=== PATIENT | female | born 1980 | race Caucasian/White ===

== ENCOUNTER → 2016-07-11 | Outpatient (CLI) | payer BC ==
[~2016-07-11] MED LIST: ACHYD1T PO; BENZ56AE TP; BUTA1CAP3; CITA20TA7; CTLP20T PO; DCS100C PO; FAMO40TA6; HYDR-3584; IBP600T1 PO; IBP800T PO; LEVO88TA54 PO; MULT-305 PO; OXYC-12 PO; OXYC-272 PO; PREN1TAB14 PO; SUMA100T3; TOPI100T11
[2016-07-11 17:07] LABS: BASOPHILS # (AUTO) 0.1 10^3/uL (0.0-0.1); BASOPHILS % (AUTO) 1 % (0-10); EOSINOPHILS # (AUTO) 0.2 10^3/uL (0.0-0.3); EOSINOPHILS % (AUTO) 3 % (0-10); LYMPHOCYTES # (AUTO) 1.5 X 10^3 (1.0-4.0); LYMPHOCYTES % (AUTO) 19 % (12-44); MEAN CORPUSCULAR HEMOGLOBIN 31 PG (25-34); MEAN CORPUSCULAR HGB CONC 33 G/DL (32-36); MEAN CORPUSCULAR VOLUME 93 FL (80-99); MEAN PLATELET VOLUME 10.8 FL (7.4-10.4); MONOCYTES # (AUTO) 0.4 X 10^3 (0.0-1.0); MONOCYTES % (AUTO) 5 % (0-12); NEUTROPHILS # (AUTO) 5.9 X 10^3 (1.8-7.8); NEUTROPHILS % (AUTO) 73 % (42-75); PLATELET COUNT 195 10^3/uL (130-400); RED BLOOD COUNT 4.57 10^6/uL (4.35-5.85); RED CELL DISTRIBUTION WIDTH 12.4 % (10.0-14.5); WHITE BLOOD COUNT 8.1 10^3/uL (4.3-11.0)
[2016-07-11 17:25] LABS: ALANINE AMINOTRANSFERASE 12 U/L (0-55); ALBUMIN 4.6 G/DL (3.2-4.5); AMYLASE 53 U/L (25-125); ANION GAP 5 MMOL/L (5-14); ASPARTATE AMINO TRANSFERASE 11 U/L (5-34); BILIRUBIN,TOTAL 0.2 MG/DL (0.1-1.0); BLOOD UREA NITROGEN 19 MG/DL (7-18); BUN/CREATININE RATIO 23; CALCIUM 9.6 MG/DL (8.5-10.1); CARBON DIOXIDE 28 MMOL/L (21-32); CHLORIDE 108 MMOL/L (98-107); CREATININE SERUM 0.82 MG/DL (0.60-1.30); GFR ESTIMATED > 60; GLUCOSE 96 MG/DL (70-105); LIPASE 24 U/L (8-78); POTASSIUM 4.1 MMOL/L (3.6-5.0); SODIUM 141 MMOL/L (135-145); TOTAL PROTEIN 7.4 G/DL (6.4-8.2); hs C REACTIVE PROTEIN 0.12 MG/DL (0.00-0.50)
== END ==
LOC: LAB 16:51
PROVIDERS: ATTEND Nurse Practitioner Family
DX: R10.11 Right upper quadrant pain (principal); R11.0 Nausea
CPT/HCPCS: 36415; 80053; 82150; 83690; 85025; 86141

== ENCOUNTER → 2016-07-22 | Outpatient (CLI) | payer BC ==
--- NOTE | 2016-07-22 11:16 | Diagnostic Imaging Report ---
PROCEDURE: US abdomen complete. TECHNIQUE: Multiple real-time grayscale images were obtained over the abdomen in various projections. INDICATION: Right upper quadrant pain. COMPARISON: 07/26/2015. FINDINGS: The visualized portions of the pancreas appear unremarkable. The abdominal aorta is normal in caliber. The visualized portions of the IVC appear unremarkable. The liver is fairly homogeneous with no focal lesion seen. It is normal in size. Hepatopetal flow in the portal vein is demonstrated. The CBD is 3 mm in caliber. The gallbladder demonstrates no stones or wall thickening. No pericholecystic fluid. The sonographic Gray sign was reportedly negative. The spleen is 12.3 x 4.4 x 4 cm in size, at the upper limits of normal. The left kidney is 12 and the right kidney is also 12 cm in length. There is no hydronephrosis or focal lesion. No fluid collection or ascites is seen. IMPRESSION: The splenic size is at the upper limits of normal. No gallstones or evidence of cholecystitis. Dictated by: Dictated on workstation # [id number]
== END ==
LOC: RAD 07:48
PROVIDERS: ATTEND Nurse Practitioner Family
DX: R10.11 Right upper quadrant pain (principal); R11.0 Nausea
CPT/HCPCS: 76700

== ENCOUNTER → 2016-07-30 | Outpatient (CLI) | payer BC ==
[~2016-07-30] MED LIST changes: +CATHETER FLUSH 10 ML SYR IV PRN
--- NOTE | 2016-07-30 10:46 | Diagnostic Imaging Report ---
INDICATION: Right upper quadrant pain. EXAMINATION: Hepatobiliary scan. TECHNIQUE: 5.26 mCi of technetium 99m Choletec was given for the scan. One can of Ensure Plus was administered orally 1 hour into the study. FINDINGS: There is homogeneous uptake of isotope throughout the liver. The cystic duct and common duct are both patent. The gallbladder ejection fraction is calculated at 65%. IMPRESSION: Normal hepatobiliary scan and gallbladder ejection. Dictated by: Dictated on workstation # [id number]
== END ==
LOC: CARD 07:56
PROVIDERS: ATTEND Nurse Practitioner Family
DX: R10.11 Right upper quadrant pain (principal); R11.0 Nausea
CPT/HCPCS: 78227

== ENCOUNTER 2016-12-10 05:40 | Outpatient (CLI) | payer BC ==
[~2016-12-10] VITALS: Ht 162.6 cm; Wt 68.5 kg
[~2016-12-10 05:40] MED LIST changes: -CATHETER FLUSH 10 ML SYR IV PRN; -TOPI100T11; +TOPI100T11 PO
[2016-12-10] MEDS ORDERED: CITA20TA12 PO (12:35)
[2016-12-10] MEDS ORDERED: CETI10TA20 PO (12:35)
[2016-12-10] MEDS ORDERED: DIPH25CA79 PO (12:35)
== END 2016-12-10 12:42 ==
LOC: PREOP 05:40
PROVIDERS: ATTEND Obstetrics & Gynecology
DX: Z01.818 Encounter for other preprocedural examination (principal); N83.9 Noninflammatory disorder of ovary, fallopian tube and broad ligament, unspecified

== ENCOUNTER 2016-12-12 10:35 | Day surgery (SDC) | payer BC ==
[2016-12-12] VITALS (7 sets, daily range): BP systolic 101–127; BP diastolic 65–81
[~2016-12-12] VITALS: Ht 162.6 cm; Wt 68.5 kg
[~2016-12-12 10:35] MED LIST changes: +CETI10TA20 PO; +CITA20TA12 PO; +DIPH25CA79 PO
[2016-12-12] MEDS ORDERED: ceFAZolin 1 GM/NS 50 ML IVPB IV ONE ×2 (11:00)
[2016-12-12] MEDS ORDERED: CATHETER FLUSH 10 ML SYR IV PRN (11:00)
[2016-12-12 11:02] LABS: BASOPHILS # (AUTO) 0.1 10^3/uL (0.0-0.1); BASOPHILS % (AUTO) 1 % (0-10); EOSINOPHILS # (AUTO) 0.2 10^3/uL (0.0-0.3); EOSINOPHILS % (AUTO) 4 % (0-10); LYMPHOCYTES # (AUTO) 1.4 X 10^3 (1.0-4.0); LYMPHOCYTES % (AUTO) 32 % (12-44); MEAN CORPUSCULAR HEMOGLOBIN 30 PG (25-34); MEAN CORPUSCULAR HGB CONC 32 G/DL (32-36); MEAN CORPUSCULAR VOLUME 92 FL (80-99); MEAN PLATELET VOLUME 11.1 FL (7.4-10.4); MONOCYTES # (AUTO) 0.3 X 10^3 (0.0-1.0); MONOCYTES % (AUTO) 7 % (0-12); NEUTROPHILS # (AUTO) 2.4 X 10^3 (1.8-7.8); NEUTROPHILS % (AUTO) 56 % (42-75); PLATELET COUNT 168 10^3/uL (130-400); RED BLOOD COUNT 4.41 10^6/uL (4.35-5.85); RED CELL DISTRIBUTION WIDTH 12.5 % (10.0-14.5); WHITE BLOOD COUNT 4.3 10^3/uL (4.3-11.0)
[2016-12-12] MEDS ORDERED: BUP/EPI 0.5% 1:200,000 (MARCAINE) 10ML VIAL IJ ONE (11:21)
[2016-12-12] MEDS ORDERED: proPOfol 200 MG/20 ML (DIPRIVAN) VIAL IV ONE (11:34)
[2016-12-12] MEDS ORDERED: fentaNYL INJECTION 100 MCG/2 ML AMP ONE ×2 (11:34→13:28)
[2016-12-12] MEDS ORDERED: MIDAZOLAM 2 MG/2 ML (VERSED) VIAL ONE (11:34)
[2016-12-12] MEDS ORDERED: LIDOCAINE PF 2% 5 ML (XYLOCAINE) VIAL ONE (11:34)
[2016-12-12] MEDS ORDERED: ROCURONIUM 50 MG/5 ML (ZEMURON) VIAL IV ONE (11:34)
[2016-12-12] MEDS ORDERED: ONDANSETRON 4 MG/2 ML (SDV) Z0FRAN ONE ×2 (11:35→17:55)
[2016-12-12] MEDS ORDERED: SEVOFLURANE (ULTANE) 15 ML INHAL SOLN ONE ×5 (11:37→13:48)
--- NOTE | 2016-12-12 12:39 | Progress Note-Pre Operative ---
Pre-Operative Progress Note H&P Reviewed The H&P was reviewed, patient examined and no changes noted. Date Seen by Provider: Dec 12, 2016 Time Seen by Provider: 12:39 Date H&P Reviewed: Dec 12, 2016 Time H&P Reviewed: 12:39 Pre-Operative Diagnosis: right pelvic pain and left adnexal mass history of endometriosis SRINIVAS GUEVARA MD Dec 12, 2016 12:39 pm
[2016-12-12] MEDS ORDERED: D5 LR IV SOLUTION 1,000 ML IV SCH (12:40)
--- NOTE | 2016-12-12 12:40 | Progress Note-Post Operative ---
Post-Operative Progess Note Surgeon (s)/Slot Machine Mechanic (s) Surgeon SRINIVAS GUEVARA MD Slot Machine Mechanic: Corie Nuñez Pre-Operative Diagnosis chronicic pain and left adnexal mass history of endometriosis Post-Operative Diagnosis same with overt endometriosis implants on the appendix, pelvic adhesions, right hydrosalpinx, aand with pathology pending Procedure & Operative Findings Date of Procedure 12/12/16 Procedure Performed/Findings laparoscopic bilateral salpingectomy with laparoscopic left oophorectomy endoscopic destruction of endometriosis and laparoscopic adhesiolysis and laparoscopic appendectomy Anesthesia Type GETA Estimated Blood Loss Estimated blood loss (mL): minimal Specimens/Packing Specimens Removed both fallopian tubes and the left ovary, appendix Packing: none SRINIVAS GUEVARA MD Dec 12, 2016 12:40
[2016-12-12] MEDS ORDERED: OXYC-202 PO (12:42)
[2016-12-12] MEDS ORDERED: fentaNYL INJECTION 100 MCG/2 ML AMP IVP PRN (12:45)
[2016-12-12] MEDS ORDERED: ONDANSETRON 4 MG/2 ML (SDV) Z0FRAN IVP PRN ×2 (12:45→13:15)
[2016-12-12] MEDS ORDERED: KETOROLAC 30 MG/ML VIAL IVP ONE (12:45)
--- NOTE | 2016-12-12 12:45 | Discharge Instructions ---
Discharge Instructions Discharge Medications New, Converted or Re-Newed RX: RX on Chart Patient Instructions Patient Instructions: as directed Return to The Hospital For: aas direct Activity & Diet Discharge Diet: No Restrictions Activity as Tolerated: No Orders-Post D/C & Referrals Follow Up Appt: return to clinic with me in 1 week for suture removal Activity: Rest for 24 hours, than as tolerated. Wound Care: May remove Band-Aid tomorrow. Replace as desired. Keep incisions clean and dry. Wash daily with soap and water. Diet: As tolerated-Clear Liquids only if nauseated. May shower or tub bathe as desired. No driving for 24 hours, no alcoholic beverages for 24 hours, and nothing per vagina (no tampons, douching, or intercourse) for 1/2 weeks. Patient to return to the clinic as soon as possible for: Temperature greater than 101F, Severe Pain, Foul discharge from incision or vagina, Excessive Bleeding (more than a period). SRINIVAS GUEVARA MD Dec 12, 2016 12:45 pm
[2016-12-12] MEDS ORDERED: LACTATED RINGERS 1,000 ML IV PRN (13:09)
[2016-12-12] MEDS ORDERED: morphine INJ 10 MG/ML 1ML (SYR OR VIAL) IVP PRN (13:15)
[2016-12-12] MEDS ORDERED: MEPERIDINE (DEMEROL) INJ 50 MG/ML IVP PRN (13:15)
[2016-12-12] MEDS ORDERED: GLYCOPYRROLATE 0.2 MG/ML (ROBINUL) 2 ML VIAL ONE (13:32)
[2016-12-12] MEDS ORDERED: NEOSTIGMINE (BLOXIVERZ ) 1 MG/1ML 10 ML VIAL ONE (13:32)
[2016-12-12] MEDS ORDERED: morphine INJ 10 MG/ML 1ML (SYR OR VIAL) ONE (13:49)
[2016-12-12] MEDS ORDERED: KETOROLAC 30 MG/ML VIAL ONE ×2 (13:49→21:44)
[2016-12-12] MEDS ORDERED: MEPERIDINE (DEMEROL) INJ 50 MG/ML ONE (14:04)
[2016-12-12] MEDS ORDERED: oxyCODONE/APAP 10/325MG (PERCOCET 10) TABLET PO ONE ×2 (15:10→16:28)
[2016-12-12] MEDS: oxyCODONE/APAP 10/325MG (PERCOCET 10) TABLET PO PRN ×2 (15:20→16:40)
[2016-12-12] MEDS ORDERED: D5 LR IV SOLUTION 1,000 ML IV ONE (18:06)
[2016-12-12] MEDS ORDERED: KETOROLAC 30 MG/ML VIAL IVP PRN (22:00)
--- NOTE | 2016-12-13 02:19 | OPERATIVE REPORT ---
DATE OF SERVICE: 12/12/2016 PREOPERATIVE DIAGNOSES: Chronic pelvic pain, left adnexal mass and history of endometriosis. POSTOPERATIVE DIAGNOSES: Chronic pelvic pain, left adnexal mass and history of endometriosis with endometriosis in the pelvis, pelvic adhesions and overt endometriosis implant involving the appendix. OPERATIVE PROCEDURE: Laparoscopic left salpingo-oophorectomy, laparoscopic adhesiolysis, laparoscopic right salpingectomy, laparoscopic destruction of endometriosis and laparoscopic appendectomy. OPERATIVE DESCRIPTION: With the patient in the supine position under satisfactory general anesthesia, she was repositioned in the dorsal lithotomy position in the [facility] and prepped and draped in the usual fashion for abdominal and vaginal surgery. The urinary bladder was emptied with a straight catheter. The vagina was distended by placing a damp Kerlix in the vaginal vault. The patient brought in low dorsolithotomy position. A 5 mm incision was made in the patient's left upper quadrant, a 12 mm incision in the base of the umbilicus and another 5 mm incision just superior to the symphysis pubis. All three incision sites were on the same location as her previous laparoscopy incisions. All sites were infiltrated with 0.5% Marcaine with epinephrine prior to incision. A Veress needle was placed through the left upper quadrant incision. Correct placement was confirmed with a water drop test. The abdomen was insufflated with 2.4 liters of carbon dioxide, then the Veress needle was removed and a 5 mm Optiview laparoscopic port was placed. The patient was placed in Trendelenburg allowing the bowel was filled partially above the pelvis and then a 12 mm port was placed through the infraumbilical incision and a 5 mm port superior to the symphysis pubis. The pelvis was examined. There were adhesions of the sigmoid to the left pelvic brim obscuring access to the left tube and ovary. There were adhesions of sigmoid epiploica to the vaginal cuff. There were endometriosis implants on the vaginal cuff. There were endometriosis implants involved with the adhesions of the bowel to the left pelvic brim. The right fallopian tube appeared to be somewhat distended consistent with an early hydrosalpinx. Both fallopian tubes appeared to have evidence of endometriosis thereon. The appendix was identified. It had a classic endometriosis appearing lesion on its midportion. The bowel adhesions were freed very carefully and meticulously allowing the bowel to eventually been spilled completely above the pelvis allowing access to the left tube and ovary. An Endo-JOLYNN was placed across the IP ligament and fired severing the ovary and tube from their attachments. The adnexa were placed in the cul-de-sac for removal later. There was some bleeding along the staple line just slight oozing, but this was touched with cautery to effect hemostasis. The endometriosis implants in the vaginal cuff and in the cul-de-sac and ovarian fossa were now touched with electrocautery to destroy them. The right fallopian tube was grasped and elevated. There were couple small simple appearing cysts on the right ovary that were benign in nature. The mesosalpinx was carefully divided the fallopian tube from the adnexa. That specimen was brought out through the umbilical port and sent to pathology labeled as right fallopian tube. The pelvis was irrigated and examined for hemostasis which was complete at this point. There was some fluid in the pelvis that was irrigated out and then the pelvis was irrigated a final time and aspirated out. Attention was now turned to the appendix. The appendix was grasped and elevated. The mesoappendix was perforated close to the base of the appendix. Endo-JOLYNN was placed across the base of the appendix and fired and then a second firing of the same instrument across the mesoappendix severed the tissue the appendix from all attachments that was placed in the Endobag along with the left tube and ovary and then brought out through the umbilical incision that did require removal of the port to allow removal of the Endobag. The left tube and ovary were labeled appropriately and sent to pathology jointly. The appendix was sent separately to pathology. The stump of the appendix was copiously irrigated. The adnexal dissection sites were copiously irrigated. The cul-de-sac was copiously irrigated. The left pelvic brim was copiously irrigated. There was no bleeding and no further remaining abnormal pathology at those sites. The stump of the appendix was then treated with several drops of Betadine solution. With all abnormal pathology dealt with and there was no bleeding, the procedure was terminated. The abdomen was evacuated and insufflating gas in the process of removing the instruments and the ports. The skin incisions were closed with nylon interrupted sutures. The fascia at the umbilical incision was closed with [id number] suture of 2-0 Vicryl. The Kerlix gauze was removed from the vagina. There was no bleeding from the vagina. Sponge and needle counts were correct at this point. Estimated blood loss was minimal. The patient tolerated the procedure well and was uneventfully awakened from her general anesthesia and transferred to the recovery room in stable condition with plans for discharge home PAR. Job ID: [id number] DocumentID: [id number] Dictated Date: 12/12/2016 13:42:11 Team Lead Date: 12/13/2016 02:18:20 Dictated By: SRINIVAS GUEVARA MD MTDD
== END 2016-12-13 00:15 | disposition home or self-care (01) ==
LOC: SDC 10:35
PROVIDERS: ATTEND Obstetrics & Gynecology
DX: R10.2 Pelvic and perineal pain (principal); N80.3 Endometriosis of pelvic peritoneum; N80.5 Endometriosis of intestine; N73.6 Female pelvic peritoneal adhesions (postinfective); N80.4 Endometriosis of rectovaginal septum and vagina; N80.2 Endometriosis of fallopian tube; N83.201 Unspecified ovarian cyst, right side; N83.202 Unspecified ovarian cyst, left side; N83.8 Other noninflammatory disorders of ovary, fallopian tube and broad ligament; E03.9 Hypothyroidism, unspecified; F32.9 Major depressive disorder, single episode, unspecified; Z79.899 Other long term (current) drug therapy
CPT/HCPCS: 36415; 85025; 87081

== ENCOUNTER → 2017-09-07 | Outpatient (CLI) | payer BC ==
[~2017-09-07] MED LIST changes: -CITA20TA7; +CITA20TA9; +OXYC-202 PO
--- NOTE | 2017-09-07 09:05 | Diagnostic Imaging Report ---
PROCEDURE: US Thyroid. TECHNIQUE: Multiple real-time grayscale images were obtained of the thyroid in various projections. INDICATION: Followup thyroid nodule. COMPARISON: 02/11/2016. FINDINGS: Right lobe measures 4 x 1.1 x 1 cm. Left lobe measures 3.2 x 0.9 x 1 cm. There is a single subtle nearly isoechoic nodule on the right that measures 8 x 6 x 7 mm. This is felt to correspond to 8 x 5 x 7 mm nodule seen previously. No new thyroid nodules or masses are identified on either side. Color flow images show normal vascularity bilaterally. IMPRESSION: Single subtle nodule on the right, which is stable when compared to prior exam. Appearance does not satisfy criteria for fine needle aspiration. Continued followup could be performed to ensure stability. Dictated by: Dictated on workstation # [id number]
== END ==
LOC: RAD 08:19
PROVIDERS: ATTEND Family Medicine
DX: E04.1 Nontoxic single thyroid nodule (principal); R59.0 Localized enlarged lymph nodes; E03.9 Hypothyroidism, unspecified
CPT/HCPCS: 76536

== ENCOUNTER → 2018-02-15 | Outpatient (CLI) | payer BC ==
[~2018-02-15] MED LIST changes: -OXYC-202 PO; +OXYC1TAB12 PO
--- NOTE | 2018-02-15 09:20 | Diagnostic Imaging Report ---
PROCEDURE: US Gallbladder. TECHNIQUE: Multiple real-time grayscale images were obtained over the right upper quadrant in various projections. INDICATION: Right upper quadrant abdominal pain with abdominal bloating FINDINGS: Grayscale imaging of the gallbladder reveals no intraluminal filling defect. There is no gallbladder wall thickening or pericholecystic fluid. No intra or extrahepatic biliary ductal dilatation is identified. There is no evidence of pancreatic, abdominal aortic or right renal abnormality. No free fluid is seen. The inferior vena cava is patent and otherwise unremarkable. IMPRESSION: Unremarkable gallbladder ultrasound. Dictated by: Dictated on workstation # [id number]
== END ==
LOC: RAD 08:03
PROVIDERS: ATTEND Family Medicine
DX: R10.11 Right upper quadrant pain (principal)
CPT/HCPCS: 76705

== ENCOUNTER → 2018-03-12 | Outpatient (CLI) | payer BC ==
[~2018-03-12] MED LIST changes: +CATHETER FLUSH 10 ML SYR IV PRN
--- NOTE | 2018-03-12 14:02 | Diagnostic Imaging Report ---
Indication: Right upper quadrant pain. The patient was administered 5.1 mCi technetium 99m Choletec intravenously and imaging over the abdomen was performed. At 60 minutes, the patient ingested one can of Ensure and a gallbladder ejection fraction was calculated. There is homogeneous uptake of activity by the liver. Prompt excretion of activity into the common duct and gallbladder is seen. There is normal passage of activity into the small bowel. Gallbladder ejection fraction is normal at 66%. Impression: Normal HIDA scan and gallbladder ejection fraction. Dictated by: Dictated on workstation # [id number]
== END ==
LOC: CARD 09:41
PROVIDERS: ATTEND Obstetrics & Gynecology
DX: R10.11 Right upper quadrant pain (principal)
CPT/HCPCS: 78227

== ENCOUNTER → 2019-03-09 | Outpatient (CLI) | payer BC ==
[~2019-03-09] MED LIST changes: -CATHETER FLUSH 10 ML SYR IV PRN
--- NOTE | 2019-03-09 12:11 | Diagnostic Imaging Report ---
INDICATION: Routine screening. COMPARISON: No prior mammograms are available for comparison. This is a baseline study. TECHNIQUE: 2-D and 3-D bilateral screening mammography was performed. The current study was also evaluated with a Computer Aided Detection (CAD) system. 3-D tomosynthesis was also performed and reviewed. FINDINGS: Both breasts are heterogeneously dense, limiting the sensitivity of mammography. No dominant mass or malignant-appearing microcalcifications are seen. Axillae are unremarkable. IMPRESSION: No mammographic features suspicious for malignancy are identified. ACR BI-RADS Category 1: Negative. Result letter will be mailed to the patient. Note: At least 10% of breast cancer is not imaged by mammography. Dictated by: Dictated on workstation # [id number]
== END ==
LOC: RAD 09:42
PROVIDERS: ATTEND Obstetrics & Gynecology
DX: Z12.31 Encounter for screening mammogram for malignant neoplasm of breast (principal)
CPT/HCPCS: 77067

== ENCOUNTER → 2019-11-30 | Outpatient (CLI) | payer BC ==
[~2019-11-30] MED LIST changes: -CETI10TA20 PO; +CETI10TA49 PO
--- NOTE | 2019-11-30 10:24 | Diagnostic Imaging Report ---
PROCEDURE: MR imaging of the brain without contrast. TECHNIQUE: Multiplanar, multisequence MR imaging of the brain was performed without contrast. INDICATION: Headache. COMPARISON: There are no prior MRI examinations available for comparison. The CT head exam performed on 02/28/2013 failed to show any sign of an acute intracranial abnormality. FINDINGS: On the diffusion series of this exam, there is no abnormal signal arising from the brain to suggest an area of acute ischemia. There is no mass, shift of the midline, or hemorrhage to suggest an acute intracranial abnormality. There is no abnormal signal arising from the periventricular white matter on the FLAIR series to suggest demyelinating disease either. The ventricles are not abnormally dilated and similar in size to the prior CT head exam. The sella is not enlarged and the expected carotid flow voids are evident bilaterally. The orbits are symmetrical and within normal limits. The sinuses are generally clear although there is a 1.5 cm retention cyst in the floor of the right maxillary antrum. The 7th and 8th nerve complexes are unremarkable. IMPRESSION: 1. There is no acute intracranial abnormality. There is no sign of a mass lesion either. 2. There is no evidence for demyelinating disease. 3. There is a small retention cyst in the floor of the right maxillary antrum. Dictated by: Dictated on workstation # [id number]
== END ==
LOC: RAD 08:39
PROVIDERS: ATTEND Nurse Practitioner Family
DX: J34.1 Cyst and mucocele of nose and nasal sinus (principal); G43.909 Migraine, unspecified, not intractable, without status migrainosus
CPT/HCPCS: 70551

== ENCOUNTER → 2020-03-01 | Outpatient (CLI) | payer BC ==
--- NOTE | 2020-03-01 10:52 | Diagnostic Imaging Report ---
PROCEDURE: CT sinuses without contrast TECHNIQUE: Multiple contiguous axial images were obtained through the sinuses without the use of intravenous contrast. Coronal and sagittal reformations were then performed. Auto Exposure Controls were utilized during the CT exam to meet ALARA standards for radiation dose reduction. INDICATION: Sinusitis. COMPARISON: MRI brain without contrast 11/29/2018. FINDINGS: Stable soft tissue thickening in the floor of the right maxillary sinus. The paranasal sinuses are otherwise clear. The ostiomeatal units and frontal recesses are patent. Marked rightward bowing of the nasal septum. Normal alignment of the temporomandibular joints. The mastoids and middle ears are clear. Skull base is intact. IMPRESSION: Stable soft tissue attenuation in the floor of the right maxillary sinus likely represents chronic mucosal thickening. Dictated by: Dictated on workstation # [id number]
== END ==
LOC: RAD 09:35
PROVIDERS: ATTEND Otolaryngology Otolaryngology/Facial Plastic Surgery
DX: J32.8 Other chronic sinusitis (principal)
CPT/HCPCS: 70486

== ENCOUNTER → 2020-08-29 | Outpatient (CLI) | payer BC ==
--- NOTE | 2020-08-29 11:00 | Diagnostic Imaging Report ---
PROCEDURE: US left lower extremity venous. TECHNIQUE: Multiple Real-time grayscale images were obtained over the left lower extremity in various projections. Additional duplex Doppler and color Doppler images were also obtained. INDICATION: Left posterior knee pain. FINDINGS: Examination of the veins of the left leg shows normal augmentation, compression, and color Doppler flow with no thrombosis seen. IMPRESSION: No abnormality is seen. Dictated by: Dictated on workstation # [id number]
== END ==
LOC: RAD 10:30
PROVIDERS: ATTEND Family Medicine
DX: M25.562 Pain in left knee (principal); M79.662 Pain in left lower leg; M79.89 Other specified soft tissue disorders